=== PATIENT | male | born 1985 | race Two or more races ===

== ENCOUNTER 2020-03-16 03:34 | Inpatient (IN) | payer BC, OTHER ==
[~2020-03-16] VITALS: Ht 167.6 cm; Wt 107.7 kg
--- NOTE | 2020-03-16 04:08 | NUR ---
PT STATES FEELING PALPITATIONS AND LOWER EXTREMITY NUMBNESS AROUND 0300 TONIGHT. STATES NO NAUSEA, HEADACHE, LIGHTHEADEDNESS, NO NUMBNESS AT THIS TIME. PT STATES HE FEELS "JUST FINE". ERP AT BEDSIDE FOR EVAL, PT PLACED ON ALL MONITORS, NO S/S OF DISTRESS. S/O AT BEDSIDE.
[2020-03-16] MEDS ORDERED: LORazepam 2 MG/ML, 1ML IVPush PRN (04:30)
[2020-03-16] MEDS ORDERED: SODIUM CHLORIDE 0.9% 1,000ML IVBOLUS ONE (04:30)
[2020-03-16] MEDS ORDERED: SODIUM CHLORIDE FLUSH 10ML SYR IVF ONE (04:30)
[2020-03-16] MEDS ORDERED: LORazepam 2 MG/ML, 1ML ONE (04:47)
[2020-03-16] MEDS ORDERED: LABETALOL 20 MG/4 ML ONE ×2 (04:58→05:42)
[2020-03-16] MEDS ORDERED: LABETALOL 5MG/ML, 20ML IVPush ONE ×2 (05:00→05:30)
[2020-03-16 05:12] LABS: ALANINE AMINOTRANSFERASE 614 U/L (12-78); ALBUMIN 3.9 g/dL (3.4-5.0); ANION GAP 7 mmol/L (5-15); CALCIUM 8.7 mg/dL (8.5-10.1); CHLORIDE 98 mmol/L (98-107); CREATININE 0.96 mg/dL (0.7-1.3)
[2020-03-16 05:17] LABS: ALKALINE PHOSPHATASE 152 U/L (45-117); BILIRUBIN,TOTAL 1.1 mg/dL (0.2-1.0); TOTAL PROTEIN 8.4 g/dL (6.4-8.2); TROPONIN I < 0.015 ng/mL (0.000-0.045)
[2020-03-16 05:20] LABS: BASOPHILS % (AUTO) 1 % (0-1); EOSINOPHILS % (AUTO) 2 % (1-7); LYMPHOCYTES % (AUTO) 20 % (22-44); MEAN CORPUSCULAR HEMOGLOBIN 29.8 pg (27.5-34.5); MEAN CORPUSCULAR HGB CONC 33.8 g/dL (33.2-36.2); MEAN PLATELET VOLUME 9.3 fL (7.4-10.4); MONOCYTES % (AUTO) 6 % (2-9); NEUTROPHILS % (AUTO) 71 % (42-75); PLATELET COUNT 193 x10^3/uL (130-400); RED BLOOD COUNT 5.77 x10^6/uL (4.38-5.82); RED CELL DISTRIBUTION WIDTH 13.1 % (9.4-14.8)
[2020-03-16 05:26] LABS: MD NO
--- NOTE | 2020-03-16 07:05 | NUR ---
PT RESTING IN [facility], AWAITNG BED ASSIGNMENT. NO NEEDS AT THIS TIME. CALL LIGHT WITHIN REACH.
--- NOTE | 2020-03-16 08:00 | NUR ---
PT AMBULATED TO BATHROOM WITH STEADY GAIT
--- NOTE | 2020-03-16 08:29 | NUR ---
REPORT TO JASON WEINBERG
[2020-03-16] MEDS ORDERED: LORazepam 1MG TABLET PO PRN ×2 (09:00)
[2020-03-16] MEDS ORDERED: ONDANSETRON ODT 4 MG PO PRN (09:00)
[2020-03-16] MEDS ORDERED: ONDANSETRON 2MG/ML, 2ML IVPush PRN (09:00)
[2020-03-16] MEDS ORDERED: ACETAMINOPHEN 325 MG TABLET PO PRN (09:00)
[2020-03-16] MEDS ORDERED: LORazepam 2 MG/ML, 1ML IV PRN ×3 (09:00)
[2020-03-16] MEDS ORDERED: LORazepam 0.5MG TABLET PO PRN (09:00)
[2020-03-16] MEDS: HEPARIN 5,000 UNITS/ML, 1ML SQ SCH ×2 (09:53→16:14)
[2020-03-16] MEDS: CARVEDILOL 6.25 MG TABLET PO SCH ×2 (09:55→17:19)
[2020-03-16 11:42] VITALS: BP 185/98
[2020-03-16] MEDS: INSULIN LISPRO 100 UNITS/ML, PEN SQ-INSULIN SCH ×3 (12:20→20:37)
[2020-03-16 12:50] VITALS: BP 163/113
[2020-03-16] MEDS: ISOSORBIDE DINITRATE 10 MG TABLET PO SCH ×2 (15:00→20:36)
[2020-03-16 16:06] VITALS: BP 165/98
[2020-03-16 17:00] VITALS: BP 168/98
[2020-03-16 20:34] VITALS: BP 166/102
[2020-03-16] MEDS: LISINOPRIL 10 MG TABLET PO SCH (20:35)
[2020-03-16] MEDS: AMLODIPINE 5 MG TABLET PO SCH (20:35)
[2020-03-17] MEDS: HEPARIN 5,000 UNITS/ML, 1ML SQ SCH ×3 (01:00→18:09)
[2020-03-17 01:13] VITALS: BP 137/84
[2020-03-17] MEDS: CARVEDILOL 6.25 MG TABLET PO SCH ×2 (05:45→17:53)
[2020-03-17 07:33] VITALS: BP 160/105
[2020-03-17] MEDS: INSULIN LISPRO 100 UNITS/ML, PEN SQ-INSULIN SCH ×5 (07:48→21:34)
[2020-03-17] MEDS: ISOSORBIDE DINITRATE 10 MG TABLET PO SCH ×3 (07:48→21:35)
[2020-03-17] MEDS: metFORMIN 500 MG TABLET PO SCH ×2 (09:20→17:53)
[2020-03-17 12:44] VITALS: BP 164/102
[2020-03-17] MEDS: AMLODIPINE 5 MG TABLET PO SCH (21:35)
[2020-03-17] MEDS: LISINOPRIL 10 MG TABLET PO SCH (21:35)
[2020-03-17 21:49] VITALS: BP 159/96
[2020-03-18] MEDS: HEPARIN 5,000 UNITS/ML, 1ML SQ SCH ×2 (01:00→07:35)
[2020-03-18 02:00] VITALS: BP 110/71
[2020-03-18] MEDS: CARVEDILOL 6.25 MG TABLET PO SCH (05:45)
[2020-03-18 06:24] VITALS: BP 125/84
[2020-03-18 07:13] LABS: ALBUMIN 3.6 g/dL (3.4-5.0); ANION GAP 5 mmol/L (5-15); CALCIUM 8.9 mg/dL (8.5-10.1); CHLORIDE 102 mmol/L (98-107)
[2020-03-18 07:18] LABS: ALANINE AMINOTRANSFERASE 487 U/L (12-78); ALKALINE PHOSPHATASE 120 U/L (45-117); BILIRUBIN,TOTAL 1.2 mg/dL (0.2-1.0); CREATININE 0.81 mg/dL (0.7-1.3); TOTAL PROTEIN 7.9 g/dL (6.4-8.2)
[2020-03-18] MEDS: ISOSORBIDE DINITRATE 10 MG TABLET PO SCH (07:41)
[2020-03-18] MEDS: metFORMIN 500 MG TABLET PO SCH (07:41)
[2020-03-18] MEDS: INSULIN LISPRO 100 UNITS/ML, PEN SQ-INSULIN SCH ×2 (07:42→11:00)
[2020-03-18] MEDS ORDERED: AMLO-150 PO (11:16)
[2020-03-18] MEDS ORDERED: LISI-167 PO (11:16)
[2020-03-18] MEDS ORDERED: METF500T PO (11:16)
[2020-03-18] MEDS ORDERED: ISOS10TA2 PO (11:16)
[2020-03-18] MEDS ORDERED: CARV6.2512 PO (11:16)
[2020-03-18 13:00] VITALS: BP 145/92
== END 2020-03-18 13:25 | disposition home or self-care (01) | DRG 305 ==
LOC: ED 05:49 → EDIP 06:34 → 4WST 09:05 → DCLOUNGE 03-18 13:20
PROVIDERS: ADMIT Internal Medicine; ATTEND Family Medicine
DX: I16.9 Hypertensive crisis, unspecified (principal); E87.1 Hypo-osmolality and hyponatremia; E11.65 Type 2 diabetes mellitus with hyperglycemia; E66.9 Obesity, unspecified; F10.20 Alcohol dependence, uncomplicated; K80.20 Calculus of gallbladder without cholecystitis without obstruction; Z79.899 Other long term (current) drug therapy; Z82.3 Family history of stroke; Z82.49 Family history of ischemic heart disease and other diseases of the circulatory system; F14.90 Cocaine use, unspecified, uncomplicated; F15.90 Other stimulant use, unspecified, uncomplicated; R94.5 Abnormal results of liver function studies; R74.01 Elevation of levels of liver transaminase levels; I11.0 Hypertensive heart disease with heart failure; I50.9 Heart failure, unspecified
CPT/HCPCS: 36415; 71045; 76705; 80053; 80074; 80307; 82962; 83036; 83690; 84484; 85025; 85379; 93005; 93306; 93356; G0378; J1644; J1815; J2060; J7030